=== PATIENT | male | born 1950 | race Caucasian/White ===

== ENCOUNTER 2025-01-26 13:55 | Outpatient (CLI) | payer MEDICARE, SELFPAY ==
--- NOTE | ~2025-01-26 | CT_ITS ---
CT Scan of the Chest without Contrast: Clinical Indication: Pulmonary nodule Technique: Contiguous sections were acquired throughout the chest without intravenous contrast. Dose reduction technique was used on this scan by utilizing automated exposure control and iterative recon struction technique. The dose-length product (DLP) was 96.74 mGy-cm. Findings: There is no evidence of any significant mediastinal, hilar or axillary lymphadenopathy. There are ath erosclerotic calcifications of the aorta and coronary arteries. There is no evidence of pleural or pericardial effusion. 7 mm noncalcified left upper lobe pulmonary nodule present (axial image 33). Small calcified granulom a present in the left lower lobe. There is mild emphysema. Images through the upper abdomen reveal no abnormalities. Impression: 7 mm left upper lobe pulmonary nodule. According to Fleischner Society criteria, for a low-risk patie nt, recommend 6-[address], then consider additional 18-[address] For a high-risk patient, follow-up CT scans at both 6-12 months and 18-24 months are recommended. Mild emphysema. Reviewed, dictated and finalized at [facility]. Impression: 7 mm left upper lobe pulmonary nodule. According to Fleischner Society criteria , for a low-risk patient, recommend 6-[address], then consider additio nal 18-[address] For a high-risk patient, follow-up CT scans at both 6-12 mo nths and 18-24 months are recommended. Mild emphysema.
--- OUTSIDE RECORDS SUMMARY | 2025-01-26 15:55 | XMS_ITS | CONTINUITY OF CARE DOCUMENT ---
Author Name leroy leroy Address Unknown Organization [facility] Address [address] [place] [address] Phone [phone] Care Team Providers Care Glue Mounter Operator Name Role Phone Quan Kaufman MD Unavailable [phone] GIORGI MARTINEZ MD Unavailable GIORGI MARTINEZ MD Unavailable PROBLEMS Condition Status Date Provider Notes Cardiology examination active Quan Kaufman MD Hyperlipidemia active Quan Kaufman MD CAD active Quan Kaufman MD Pulmonary nodule active Quan Kaufman MD Tobacco abuse active Quan Kaufman MD ENCOUNTERS Date Type Provider Location Encounter Diag nosis - In-person encounter Office Visit Quan Kaufman MD [facility] - In-person encounter Office Visit Quan Kaufman MD [facility] Tobacco abuse - In-person encounter Office Visit Quan Kaufman MD [facility] Cardiology examinationHyperlipidemiaCADPulmonary nodule VITAL SIGNS Date Observation Value Provider Body Mass Index (Ratio) 23.96 kg/m2 Bayron Kaufman MD blood pressure, diastolic -1 mm[Hg] Xenia griggsLogfuentes blood pressure, systolic 124 mm[Hg] Ashley Mitchell blood pressure, diastolic 79 mm[Hg] Michaela Encarnacion blood pressure, systolic 124 mm[Hg] Any caitlin Shashank blood pressure, cuff size large An benji Shashank oxygen saturation, oximetry 96 % Cecille Shashank pulse rate 86 /min Cecille Shashank weight E&M 153 [lb_av] Cecille Shashank height E&M 67 [in_i] Cecille Shashank Body Mass Index (Ratio) 22.86 kg/m2 Bayron Kaufman MD blood pressure, cuff size regular Sa ra Reyes blood pressure, diastolic 75 mm[Hg] Sa ra Reyes blood pressure, systolic 136 mm[Hg] Sam a Reyes oxygen saturation, oximetry 99 % Irma Reyes respiratory rate E&M 16 /min Irma Si ms pulse rate 75 /min Irma Reyes weight E&M 146 [lb_av] Irma Reyes height E&M 67 [in_i] Irma Reyes Body Mass Index (Ratio) 23.18 kg/m2 Bayron Kaufman MD blood pressure, diastolic 70 mm[Hg] Li nkLogic blood pressure, systolic 140 mm[Hg] Ashley kLogic blood pressure, cuff size regular Sa ra Reyes blood pressure, diastolic 70 mm[Hg] Sa ra Reyes blood pressure, systolic 140 mm[Hg] Sam a Reyes weight E&M 148 [lb_av] Irma Reyes oxygen saturation, oximetry 98 % Irma Reyes pulse rate 81 /min Irma Reyes height E&M 67 [in_i] Irma Reyes ALLERGIES No Known Drug Allergies HISTORY OF MEDICATION USE Medication Status Instructions Dates Provider Indications Com ments rosuvastatin 5 mg tablet active TA[facility] 1 TABLET [facility] completed TAKE 1 TABLET BY MOUTH EVERY DAY 0 - 0 Quan Kaufman MD SOCIAL HISTORY Date Observation Value Provider social history E&M S moking History: P atient currently smokes every day. P atient has been counseled to quit. Quan Kaufman MD social history reviewed E&M revi ewed - no changes required Quan Kaufman MD smoking/tobacco cess ation, patient education and counseling yes Cecille Encarnacion number of years as a smoker 55 a Cecille Encarnacion smoking history, tot al pack/day 1 1 Cecille Encarnacion cigarette use yes Cecille Encarnacion smoking status Current every day smoker A monique Shashank social history E&M S moking History: P atient currently smokes every day. P atient has been counseled to quit. Quan Kaufman MD smoking/tobacco cess ation, patient education and counseling yes Quan Kaufman MD number of years as a smoker 55 a Quan Kaufman MD smoking history, tot al pack/day 1 12 Quan Kaufman MD cigarette use yes Quan Lucas smoking status Current every day smoker U norma Kaufman MD social history reviewed E&M revi ewed - no changes required Quan Kaufman MD drug use no Quan Kaufman MD alcohol use, average drinks per day <1 Quan Kaufman MD alcohol use yes Quan Kaufman MD cigarette use yes Quan Lucas smoking status Current every day smoker U norma Kaufman MD social history E&M S moking History: P atient currently smokes every day. P atient has been counseled to quit. Quan Kaufman MD social history reviewed E&M revi ewed - no changes required Quan Kaufman MD smoking/tobacco cess ation, patient education and counseling yes Quan Kaufman MD number of years as a smoker 55 a Irma Reyes smoking history, tot al pack/day 1 11/19 Irma Amy FUNCTIONAL STATUS Date Observation Value Provider HRA, CV Assess/Plan, Angina (inactive) Management Plan continue current therapy Quan Kaufman MD HRA, CV Assess/Plan, Angina (inactive) Management Plan continue current therapy Quan Kaufman MD HRA, CV Assess/Plan, Angina (inactive) Management Plan continue current therapy Quan Kaufman MD INSURANCE PROVIDERS Payer name Policy type / Coverage type [employer] party ID AARP MEDICARE ADVANTAGE HMO-POS HMO [id number] ADVANCE DIRECTIVES Name Date DISCUSSED - NO DECISION MADE TREATMENT PLAN Date Name Performer [id number],S,Will check a lipid panel and CMP Quan Kaufman MD [id number],S,T he Patient was reencouraged to stop smoking. Quan Kaufman MD [id number],S,Will check an echo Quan Kaufman MD [id number],C,L ifestyle modification recommended. Reviewed echo EF is 65%. Quan Kaufman MD [id number],C,T he Patient was reencouraged to stop smoking. Pt started smoking at 11 years old. Quan Kaufman MD [id number],C,Lifestyle mod ification recommended. Quan Kaufman MD [id number],C, H is updated medication list for this problem includes: Crestor 5 Mg Tablet (Rosuvastatin) ..... Take 1 tablet by mouth every day Quan Kaufman MD [id number],N,C T showed pulmonary nodule. Denies any cp or sob. Will check echo results. Quan Kaufman MD [id number],N,H igh chloestrol. Will start on Crestor 5 mg daily and check lab results on next visit. Quan Kaufman MD Cardiology:Will check a lipid pa willi and CMP Quan Kaufman MD Cardiology:The Patient was reenc ouraged to stop smoking. Quan Kaufman MD Cardiology:Will check an echo Us román Kaufman MD Cardiology:Lifestyle modification recommended. Reviewed echo EF is 65%. Quan Kaufman MD Cardiology:The Patie nt was reencouraged to stop smoking. Pt started smoking at 11 years old. Quan Kaufman MD Cardiology:Lifestyle modificatio n recommended. Quan Kaufman MD Cardiology: H is updated medication list for this problem includes: Crestor 5 Mg Tablet (Rosuvastatin) ..... Take 1 tablet by mouth every day Quan Kaufman MD Cardiology:CT showed pulmonary nodule. Denies any cp or sob. Will check echo results. Quan Kaufman MD Cardiology:High chlo estrol. Will start on Crestor 5 mg daily and check lab results on next visit. Quan Kaufman MD Date Name Complete Echo COMPREHENSIVE METABO LIC PANEL, W/EGFR LIPID PANEL LIPID PANEL C-REACTIVE PROTEIN COMPREHENSIVE METABO LIC PANEL, W/EGFR Complete Echo HISTORY OF PROCEDURES Procedure Date Procedure Name Provider Procedure Notes S tatus EKG Quan Kaufman MD completed EKG Quan Kaufman MD completed
--- OUTSIDE RECORDS SUMMARY | 2025-01-26 15:55 | XMS_ITS | Clinical Summary ---
Author Organization [facility] Address [address] [place] [id number] Care Team Providers Care Advisory Services Associate Name Role Phone Unavailable Primary Care Provider Unavailabl e Social History Tobacco Use Types Packs/Day Years Used Date Smoking Tobacco: Never Assessed Sex and Gender Information Value Date Recorded Sex Assigned at Not on file Legal Sex Male 7:15 PM CDT Gender Identity Not on file Sexual Orientation Not on file Plan of Treatment Health Maintenance Due Date Last Done Comments Colorectal Cancer Screening Colonoscopy (10 Years) 1950 Hepatitis C 1968 DTaP, Tdap and Td Vaccines ( 1 - Tdap) 1969 Zoster Vaccines (1 of 2) 2000 Pneumococcal Vaccine: 65+ Ye ars (1 of 1 - PCV) 2015 COVID-19 Vaccine ( - 2023-2 5 season) 2024 Influenza Adult (#1) 2024 RSV Immunization or 60+ Years (1 - 1-dose 75+ series) 2025 Meningococcal B Vaccine Aged Out No l onger eligible based on patient's age to complete this topic Meningococcal Vaccine Aged Out No reji chata eligible based on patient's age to complete this topic RSV Immunizations Under 20 Months Aged Out No longer eligible based on patient's age to complete this topic
== END 2025-01-26 13:56 | disposition home or self-care (01) ==
PROVIDERS: PCP Family Medicine; Visit Provider Family Medicine
DX: R91.1 Solitary pulmonary nodule (principal); J43.9 Emphysema, unspecified
CPT/HCPCS: 71250